=== PATIENT | female | born 1955 | race Two or more races ===

== ENCOUNTER 2025-01-24 10:50 | Outpatient (CLI) | payer OTHER | END 2025-01-24 10:52 | disposition home or self-care (01) | LOC: SONOGRAMA 10:50 | PROVIDERS: ATTEND Pathology Anatomic Pathology & Clinical Pathology | DX: D44.0 Neoplasm of uncertain behavior of thyroid gland (principal); D34 Benign neoplasm of thyroid gland; E07.89 Other specified disorders of thyroid; E04.2 Nontoxic multinodular goiter ==